=== PATIENT | male | born 1940 | race African-American/Black ===

== ENCOUNTER → 2018-08-06 06:13 | Outpatient (CLI) | payer MEDICARE, MEDICAID, SELFPAY ==
--- NOTE | 2018-08-10 08:37 | STRESSREP_ITS ---
Stress Test Report Date: 08/06/2018 Procedure: Exercise tolerance test/imaging study Indications: Dyspnea on exertion Consent: Per the patient Procedure: The patient exercised on a Yvon protocol for 4 minutes and 20 seconds achieving a peak heart rate of 120 bpm (82 % predicted maximal heart rate) with a peak blood pressure 160/90 mmHg and a peak MET capacity of 6.2 METs. Patient refused getting switched to Lexiscan stress test. The baseline ECG demonstrated normal sinus rhythm nonspecific ST-T changes. The peak exercise ECG demonstrated sinus tachycardia with about [address] depression in the inferior and lateral leads. EKG during recovery revealed return of ST segments to baseline [There were no cardiac dysrhythmias pretest, during exercise, or recovery]. The functional capacity was considered slightly decreased for age. There was [no complaint of chest discomfort during exercise or recovery]. The examination was discontinued secondary to dyspnea, fatigue. Impression: 1. Inability to reach target heart rate slightly decreases the sensitivity of this test. 2. Stress test is negative for exercise-induced EKG changes of ischemia 3. The test test is negative for exercise-induced chest pain 4. Functional capacity is slightly decreased for age 5. Nuclear images pending Myocardial perfusion imaging study: Technique: The patient was injected with 14.6 mCi of technetium 99m Cardiolite and subsequently rest SPECT Cardiolite nuclear imaging was obtained in the horizontal long, vertical long, and short axis views. The patient exercised on a Yvon protocol. Please see above for details. The patient was injected with 44.1 mCi of technetium 99m Cardiolite and subsequently stress SPECT Cardiolite nuclear imaging was obtained in the horizontal long, vertical long, and short axis views. A gated Cardiolite study at peak stress was obtained. Interpretation: Rest and stress SPECT Cardiolite nuclear imaging status post realignment, normalization, and attenuation correction, demonstrates overall normal myocardial radioisotope uptake on the rest and stress images. The gated Cardiolite study demonstrates no significant regional wall motion abnormalities. The reported LVEF is 68 %. Impression: 1. There is no evidence of significant ischemia or infarction. 2. The gated Cardiolite study reports an LVEF of 68 %. This note was generated with [employer] software. It may contain incorrect words, spelling, and punctuation that were not noted in checking the note before signing.
== END ==
LOC: NM 06:18
PROVIDERS: Referring Provider Internal Medicine Cardiovascular Disease; Visit Provider Internal Medicine Cardiovascular Disease
DX: R06.09 Other forms of dyspnea (principal); E78.49 Other hyperlipidemia
CPT/HCPCS: 78452; 93017; A9500; A4216

== ENCOUNTER → 2020-04-07 14:33 | Outpatient (CLI) | payer MEDICARE, MEDICAID, SELFPAY | PROVIDERS: Referring Provider Internal Medicine Gastroenterology; Visit Provider Internal Medicine Gastroenterology | DX: Z11.59 Encounter for screening for other viral diseases (principal) | CPT/HCPCS: 87635; C9803; U0005; U0003 ==

== ENCOUNTER 2020-04-25 08:32 | Outpatient (RCR) | payer MEDICARE, SELFPAY ==
[2020-04-25] MEDS: COVID-19 VACC, MRNA(PFIZER)/PF 30 MCG/0.3 ML SYRINGE IM (16:38)
[2020-05-23] MEDS: COVID-19 VACC, MRNA(PFIZER)/PF 30 MCG/0.3 ML SYRINGE IM (14:30)
== END 2020-07-25 23:59 ==
LOC: IMMUN 08:32
PROVIDERS: Referring Provider Family Medicine; Visit Provider Family Medicine
DX: Z23 Encounter for immunization (principal)
CPT/HCPCS: 0001A; 0002A; 91300

== ENCOUNTER 2020-07-18 11:00 | Outpatient (RCR) | payer MEDICARE, SELFPAY ==
--- NOTE | 2020-06-01 11:46 | HP.PTEVAL ---
Patient's Visit Information PAOLO DAILEY is a 79 year old M referred to Physical Therapy by Dr. Klaus Rankin MD with a diagnosis of Dizzyness. Date of Evaluation: 06/01/20 Physical Therapist: Nawaf Malik, DPT, OCS, CSCS - Visit Plan Frequency: 1-2x /Week Duration: 2-4 Weeks Plan: 1-2x/week for 2-4 weeks as sneeded for. positional checks. Progression of adaptation/habituation ex. Balance as needed. - Subjective Lightheadedness off and on for years. Had procedure done in groin arteries to brain 2.5 yrs ago and lightheadedness started shorty thereafter. Gets it daily. Ranges from 0-7/10 adn lasts all day. Usually when he starts stirring around. Got it standing at counter. Sitting and lying down feel good. No spinning. Balance feels OK. No falls. Activities are effected in that it keeps him form travelling out of town. Basic ADLs are OK. Seems to be worse with stadning up , Not dizzy when he walks. Sleep is OK. - Objective Walks slowly with short steps back to [facility] room lacking weight shift but safe adn I without AD. Trasnfers without UE easily. Steps require raililng and are reciprocal. Slight + R halpike rajat for discomfort in eyes and dizzyness x 15 seconds. - L hallpike rajat. VOR walking is challenging but asymptomatic, Hard time dissassociating head mvoement from body movement. Pt is admittedly more sedentary lately and without regular ex. Oculomotor: - skew eye deviation. - ocular tilt. Pursuit and saccades without symptoms. VOR causes some slight dizzyness and is challenging for patient. convergence appears OK. no nystagmus with gaze or head sake. - Balance Scores Functional Gait Assessment Score: 22 % Disability: 26.6700 - Goals Goal 1:: Pt feel dizzyness is 75% better Goal Time Frame: 2-4 Weeks Goal 2:: FGA to to diminish fall risk Goal Time Frame: 2-4 Weeks Goal 3:: I management of condition. Goal Time Frame: 2-4 Weeks Goal 4:: < 6 DHI score Goal Time Frame: 2-4 Weeks - Rehabilitation Potential Physical Therapy Diagnosis: Dizzyness described as lightheadedness effecting life adn activity. Possible BPPV vs hypofunction. Rehabilitation Potential: Fair - Anticipated Interventions Patient/Client Instruction: Educate patient on: Condition, Plan of Care For the Purpose of:: To increase tolerance to activity/condition/position, To improve ability of physical actions for home/community/work/leisure, To improve gait and locomotor functions Therapeutic Exercise to Include: Balance training, Gait and locomotor training Comment: vestibualr ex. For the Purpose of:: To improve muscle performance and motor function, To increase tolerance to activity/condition/position, To improve gait and locomotor functions Thank you for the opportunity to evaluate your patient. For Medicare and Medicare HMO plans, please review the plan of care and approve it. It will need to be FAXED BACK to us at [phone] for Medicare purposes. For Medicare only, by signing this I certify the plan of care. Please let me know if there are questions or concerns regarding this plan of care. Physician Signature: Date:
--- NOTE | 2020-07-03 12:18 | HP.PTREVAL ---
Dr. Klaus Rankin MD, It has been my pleasure to treat PAOLO DAILEY over the last 4 visits for Dizzyness. Please see the progress note below for an update on the physical therapy plan of care! Subjective: Pretty good. Dizzy is a lot better. It comes and goes. Some days wt adn some days without it. Lasts moments. Not sure why it happens. Activites are pretty normal. Doing exercises can make dizzy quickly at first but not for long. No pattern to it. Started back taking walks without an issue and back to normal most days. Sees doctor Massiel in a while. Objective/Function: oculomotor unchanged form initial visit. MSQ is good except up from [employer] rajat gives slight 2 second dizzyness. - B hallpike rajat Plan Plan: f/u one more time in 2 [facility] likely d/c if doing better. Goals Goal 1:: Pt feel dizzyness is 75% better Goal Time Frame: 2-4 Weeks Goal Progress: Goal Met Goal 2:: FGA to to diminish fall risk Goal Time Frame: 2-4 Weeks Goal Progress: Goal Met Goal 3:: I management of condition. Goal Time Frame: 2-4 Weeks Goal Progress: Progressing Goal 4:: < 6 DHI score Goal Time Frame: 2-4 Weeks Goal Progress: Progressing Anticipated Interventions Patient/Client Instruction: Educate patient on: Condition, Plan of Care For the Purpose of:: To increase tolerance to activity/condition/position, To improve ability of physical actions for home/community/work/leisure, To improve gait and locomotor functions Therapeutic Exercise to Include: Balance training, Gait and locomotor training Comment: vestibualr ex. For the Purpose of:: To improve muscle performance and motor function, To increase tolerance to activity/condition/position, To improve gait and locomotor functions Please do not hesitate to contact me at [phone] by phone or if you have questions or concerns regarding this new plan of care! Sincerely, Nawaf Malik, DPT, OCS, CSCS
--- NOTE | 2020-07-18 11:28 | HP.PTDCSUM ---
It has been my pleasure to treat PAOLO DAILEY referred by Dr. Klaus Rankin MD, with the diagnosis of Dizzyness for a total of 5 visit(s). Discharge Date: 07/18/20 Please see the following information for a summary of their discharge status. Subjective: Doi ng pretty good. Alot better. Some dizzyness but not as bad as it used to be. Can get it anytime, no pattern but may last up to 30 minutes. Not daily. Activities are pretty normal. Doing exercises without dizzyness at home. Sometimes a little with neck movements minimally. % Improvement: 90 Objective/Function: - B hallpike rajat. FGA same as last session. Walking vOR not dizzy or off balance. Does everything slow and methodical(personality). Pt doing well and feeling much better, still get some dizzyness sitting up from HD B but negative testing adn no nystagmus. Goal 1:: Pt feel dizzyness is 75% better Goal Progress: Goal Met Goal 2:: FGA to to diminish fall risk Goal Progress: Goal Met Goal 3:: I management of condition. Goal Progress: Goal Met Goal 4:: < 6 DHI score Goal Progress: stagant Plan: d/c, pt to contact doctor as he states that doctor wanted him to f/u after therapy If there are questions or concerns regarding this patient's physical therapy, please feel free to call me at [phone]. Thank you for the referral of this patient. Sincerely, Nawaf Malik, DPT, OCS, CSCS
== END 2020-07-18 19:00 | disposition home or self-care (01) ==
LOC: PT 11:00
PROVIDERS: Referring Provider Otolaryngology; Visit Provider Otolaryngology
DX: R42 Dizziness and giddiness (principal)
CPT/HCPCS: 97161; 97164; 97530